=== PATIENT | female | born 1975 | race African-American/Black ===

== ENCOUNTER 2021-10-19 11:46 | Emergency (ER) | payer BC, MEDICAID ==
[~2021-10-19] VITALS: Ht 162.6 cm; Wt 64.0 kg
[2021-10-19 11:47] VITALS: BP 124/84
== END 2021-10-19 12:11 | disposition home or self-care (01) ==
LOC: ER 11:49
DX: M79.602 Pain in left arm (principal)
CPT/HCPCS: 99283